=== PATIENT | male | born 1985 | race Caucasian/White ===

== ENCOUNTER → 2019-07-25 | Outpatient (REF) | payer BC | LOC: M SFHCPLAZ 10:28 | PROVIDERS: ATTEND Dermatology | DX: D22.9 Melanocytic nevi, unspecified (principal) ==

== ENCOUNTER → 2019-12-26 | Outpatient (CLI) | payer BC ==
--- NOTE | 2019-12-30 19:36 | SLEEPCENT ---
DATE OF PROCEDURE: 12/26/2019 ORDERED BY: DIANNE Burns Nocturnal polysomnography was performed for evaluation of sleep physiology in light of disrupted sleep, frequent awakenings and nonrestorative sleep. 8 hours and 24 minutes of data were reviewed. There were 411 minutes of sleep identified. Sleep latency was mildly prolonged at 42 minutes. Rapid eye movement (REM) latency likewise at 116 minutes. Sleep architecture was fairly good. There were three REM cycles noted. Overall sleep efficiency was 82.4%. The electrocardiogram showed a sinus rhythm with respiratory variability, average heart rate 64 beats per minute. Rate ranged 58-100. EEG showed essentially normal waveforms for awake and sleep. No focal events were seen. There were 13 respiratory events identified of 10 seconds in duration or greater for an apnea-hypopnea index of 1.9, which is considered normal. The events that were seen were more frequent in the supine posture. Snoring was noted during the study and respiratory related arousals occurred 2.8 times per hour when arousals from snoring were included. There was no significant activity in the limb leads. IMPRESSION: Normal nocturnal polysomnography with snoring. RECOMMENDATIONS: Interventions to improve upper airway tone may reduce the snoring problem and result in few arousals in the night.
== END ==
LOC: M SLEEP 19:45
PROVIDERS: ATTEND Nurse Practitioner Adult Health
DX: R06.83 Snoring (principal)

== ENCOUNTER → 2020-10-06 | Outpatient (CLI) | payer BC ==
--- NOTE | 2020-10-06 18:40 | REPVR ---
PROCEDURE INFORMATION: Exam: MR Thoracic Spine Without Contrast Exam date and time: 10/06/2020 5:47 PM Age: 35 years old Clinical indication: Pain in thoracic spine; Without myelpathy or radiculopathy; Patient HX: Pain stiffness in mid back; Additional info: Thoracic spine pain TECHNIQUE: Imaging protocol: Multiplanar magnetic resonance images of the thoracic spine without contrast. COMPARISON: No relevant prior studies available. FINDINGS: Vertebrae: There is no acute compression fracture. Alignment is anatomic. There is mild vague decreased T1 and T2 signal within the posterior aspect of the T10 vertebral body. No bone marrow edema in this area is identified on the STIR weighted sequence. This could be artifactual, but mild nonspecific sclerosis in this area is possible. Spinal cord: Normal signal. No cord compression. Discs/Spinal canal/Neural foramina: No significant disc disease. No significant spinal canal stenosis. Soft tissues: Unremarkable. IMPRESSION: There is mild vague decreased T1 and T2 signal within the posterior aspect of the T10 vertebral body. This could be artifactual, but mild nonspecific sclerosis in this area is possible. Electronically signed by: Denzel Perez On 10/06/2020 18:40:40 PM
== END ==
LOC: M RAD 16:16
PROVIDERS: ATTEND Orthopaedic Surgery
DX: M54.6 Pain in thoracic spine (principal)

== ENCOUNTER → 2021-02-28 | Outpatient (REF) | payer BC | LOC: M LAB REF 16:43 | PROVIDERS: ATTEND Family Medicine | DX: Z13.220 Encounter for screening for lipoid disorders (principal); Z84.89 Family history of other specified conditions ==

== ENCOUNTER → 2021-07-22 | Outpatient (REF) | payer BC | LOC: M SMT 13:42 | PROVIDERS: ATTEND Urology | DX: Z30.2 Encounter for sterilization (principal) ==

== ENCOUNTER → 2021-10-18 | Outpatient (REF) | payer BC ==
[2021-10-18 09:25] LABS: SEMEN APPEARANCE OPAQUE (OPAQUE)
[2021-10-18 09:26] LABS: SEMEN VISCOSITY LIQUID (LIQUID); SEMEN VOLUME 1.7 ml (2.0-5.0); WBC CONCENTRATION <=1 M/ml (<=1 M/ml)
== END ==
LOC: M SMT 09:12
PROVIDERS: ATTEND Urology
DX: Z30.2 Encounter for sterilization (principal)

== ENCOUNTER → 2022-02-16 | Outpatient (REF) | LOC: M EMP 07:56 | PROVIDERS: ATTEND Family Medicine | DX: Z11.52 Encounter for screening for COVID-19 (principal) ==

== ENCOUNTER → 2025-07-25 | Outpatient (RCR) | LOC: M EMPSKH 07-07 15:05 | PROVIDERS: ATTEND Family Medicine | DX: Z20.828 Contact with and (suspected) exposure to other viral communicable diseases (principal) ==